=== PATIENT | female | born 1965 | race Caucasian/White ===

== ENCOUNTER 2024-06-14 15:00 | Outpatient (OUT) | payer OTHER, SELFPAY ==
--- NOTE | 2024-06-14 15:22 | XR_ITS ---
The [address] [address] Patient Name: HORTENCIA RAMIREZ MRN: [id number] date: 1965 Sex: F Assigned Patient Location: LAB Current Patient Location: Accession/Order Number: [id number] Exam Date: 06/14/2024 15:30 Report Date: 06/15/2024 07:56 At the request of: OG FARMER Procedure: XR acute abdomen series EXAMINATION: XR acute abdomen series HISTORY: Constipation, Vaginal Bleeding COMPARISON: No relevant comparison available. FINDINGS: LUNGS: No infiltrate, pneumothorax, or pleural effusion. MEDIASTINUM: No abnormal widening. BOWEL GAS PATTERN: Non-obstructed. FREE AIR: None. CALCIFICATIONS: None significant. BONES: Mild to moderate diffuse degenerative change OTHER: Negative. XR/XR acute abdomen series IMPRESSION: Clear lungs Nonobstructive bowel gas pattern with a normal amount of stool Electronically authenticated by: RICKY PETERSEN Date: 06/15/2024 07:56
[2024-06-14 15:25] LABS: Hematocrit 35.5 % (36.0-48.0); Hemoglobin 11.6 g/dL (12.0-16.0); Mean Corpuscular HGB Conc 32.7 g/dL (29.9-35.2); Mean Corpuscular Volume 91.7 fL (81.0-99.0); Mean Platelet Volume 9.4 fL (9.5-13.5); Platelet Count 374 10^3/uL (150-450); Red Blood Count 3.87 10^6/uL (4.20-5.40); Red Cell Distribution Width 13.4 % (11.0-15.0); White Blood Count 20.9 10^3/uL (4.0-11.0)
[2024-06-14 15:37] LABS: INR 1.05; Prothrombin Time 11.1 sec (9.0-11.6)
[2024-06-14 15:44] LABS: Eosinophils Absolute Manual 0.41 10^3/uL (0.00-0.70); Lymphocytes Absolute Manual 1.88 10^3/uL (1.20-3.80); Monocytes Absolute Manual 1.25 10^3/uL (0.30-0.80); Segmented Neut Absolute Manual 17.13 10^3/uL (1.4-6.5)
[2024-06-14 15:59] LABS: Free T4 1.26 ng/dL (0.76-1.46)
[2024-06-14 16:03] LABS: Alanine Aminotransferase 26 U/L (14-59); Albumin Globulin Ratio 0.6; Albumin Level 2.7 g/dL (3.4-5.0); Alkaline Phosphatase 150 U/L (46-116); Anion Gap 11.2; Aspartate Amino Transferase 21 U/L (15-37); BUN Creatinine Ratio 11.6; Bilirubin Total 0.4 mg/dL (0.2-1.0); Calcium 9.2 mg/dL (8.5-10.1); Carbon Dioxide 28.6 mmol/L (21.0-32.0); Chloride 99 mmol/L (98-107); Estimated GFR (African America >60 (>=60 mL/min/1.73m^2); Estimated GFR (Non-African Ame >60 (>=60 mL/min/1.73m^2); Globulin 4.8 g/dL; Glucose 117 mg/dL (74-106); Potassium 3.8 mmol/L (3.5-5.1); Sodium 135 mmol/L (136-145); Thyroid Stimulating Hormone 1.598 uIU/mL (0.358-3.740); Total Protein 7.5 g/dL (6.4-8.2)
== END 2024-06-14 15:01 | disposition home or self-care (01) ==
LOC: LAB 15:04
PROVIDERS: PCP Family Medicine; Visit Provider Family Medicine
DX: K59.00 Constipation, unspecified (principal); Z23 Encounter for immunization; N93.9 Abnormal uterine and vaginal bleeding, unspecified; I10 Essential (primary) hypertension; E03.9 Hypothyroidism, unspecified; R53.83 Other fatigue
CPT/HCPCS: 36415; 74022; 80053; 84439; 84443; 85007; 85027; 85610

== ENCOUNTER 2024-06-17 15:48 | Emergency (ER) | payer OTHER, SELFPAY ==
[2024-06-17] VITALS (16 sets, daily range): BP systolic 121–179; BP diastolic 71–113; PULSE 88–96; TEMP 36.7; O2SAT 96–98; BMI 50.4
--- OUTSIDE RECORDS SUMMARY | 2024-06-17 15:55 | XMS_ITS | CCD ---
Author Organization [facility] Inform ion Partnership [facility] Care Team Providers Care Distribution System Operator Name Role Phone Nill, Kevin R Unavailable Unavailable Nill, Kevin R Unavailable Unavailable Nill, Kevin R Unavailable Unavailable Og Cintron~[phone] UNKNOWN Unavailable Unavailable MISC, DR ARITA Admitting Unavailable MISC, DR ARITA Attending Unavailable HOY, DR FOLEY Primary Care Unavailable MISC, DR ARITA Consulting Unavailable ZIEBER, DR BHAVIN Mason Consulting Unavailable MISC, DR ARITA Admitting Unavailable MISC, DR ARITA Attending Unavailable DARIAN, DR FOLEY Primary Care Unavailable MISC, DR ARITA Consulting Unavailable DARIAN, DR FOLEY Admitting Unavailable HOY, DR FOLEY Attending Unavailable EBENY, DR FOLEY Primary Care Unavailable ZIEBER, DR BHAVIN Mason Consulting Unavailable LEIGHANN, TORI Admitting Unavailable LEIGHANN TORI Attending Unavailable DARIAN, DR FOLEY Primary Care Unavailable LEIGHANN, TORI Consulting Unavailable LEIGHANN, TORI Admitting Unavailable LEIGHANN TORI Attending Unavailable DARIAN, DR FOLEY Primary Care Unavailable LEIGHANN TORI Consulting Unavailable Allergies Allergy Classification Reported Allergen(s) Allergy Type Date of Onset Reaction(s) Facility (1 source) No Known Medication Allergies; Translations: [No Known Medication Allergies] Propensity to adverse reactions (disorder) [facility] Repository Problems Active Problems Problem Classification Problem Date Documented Date Episodic/Chronic Conditions associated with dizziness or vertigo (1 source) Dizziness and giddiness; Translations: [DIZZINESS AND GIDDINESS] Onset: 08-23-2022 Episodic Osteoarthritis (1 source) Unilateral primary osteoarthritis, left knee; Translations: [UNI PRIM OSTEOARTHRITIS LT KNEE] Onset: 04-08-2022 Chronic Other upper respiratory disease (5 sources) Other specified disorders of nose and nasal sinuses; Translations: [OTH SPEC D/O NOSE NASAL SINUSES] Onset: 09-21-2021 Episodic Skin and subcutaneous tissue infections (1 source) Cellulitis of left lower limb; Translations: [CELLULITIS OF LEFT LOWER LIMB] Onset: 06-02-2022 Episodic Superficial injury; contusion (5 sources) Contusion of left lower leg, initial encounter; Translations: [Abrasion, left lower leg, initial encounter] Onset: 04-30-2022 Episodic Unclassified (4 sources) CONTACT W/AND (SUSP) EXPOS COVID-19; Translations: [CONTACT W/AND (SUSP) EXPOS COVID-19] Onset: 09-21-2021 Past or Other Problems Problem Classification Problem Date Documented Da te Episodic/Chronic Other non-traumatic joint disorders (1 source) Pain in left shoulder; Translations: [PAIN IN LEFT SHOULDER] Onset: 04-30-2022 Episodic Other non-traumatic joint disorders (4 sources) Pain in left knee; Translations: [PAIN IN LEFT KNEE] Onset: 04-07-2022 Episodic Other upper respiratory infections (1 source) Acute pharyngitis, unspecified; Translations: [ACUTE PHARYNGITIS UNSPECIFIED] Onset: 09-21-2021 Episodic Unclassified (1 source) CONTACT W/AND (SUSP) EXPOS COVID-19; Translations: [CONTACT W/AND (SUSP) EXPOS COVID-19] Onset: 09-17-2021 Results Test Name Value Interpretation Reference Range Facility Covid-19 PCR (CVDTB)on SARS-CoV-2 (COVID-19) RNA NE+probe Ql (Unsp spec) Not detected Normal NOT DETECTED [facility] Comment on above: Result Comment: When diagnostic testing is negative, the possibility of a false negative should be considered in the context of a patient's recent exposures and the presence of clinical signs and symptoms consistent with SARS-CoV-2. This test is not yet approved or cleared by the [place] FDA. When there are no FDA-approved or cleared tests available, and other criteria are met, FDA can make tests available under an emergency access mechanism called an Emergency Use Authorization (EUA). The EUA for this test is supported by the [employer] Manager of Health and Human Service's declaration that circumstances exist to justify the emergency use of in vitro diagnostics for the detection and/or diagnosis of the virus that causes COVID-19. This EUA will remain in effect for the duration of the COVID-19 declaration justifying emergency of IVDs, unless it is terminated or revoked by the FDA (after which the test may no longer be used). Performed By: #### C VDTB #### [facility] [address] [place] [address] Dr. Barney Carvajal INFLUENZA A AND B AGon 08-19 [facility] SEE BELOW Normal [facility] Comment on above: Result Comment: Nega tive for Flu A protein angiten. Infection due to Flu A cannot be ruled out. Flu A angiten in the sample may be below the detection limit of the test. Performed By: #### I NFLUAB #### [facility] [address] [place] [address] Dr. Barney Carvajal [facility] SEE BELOW Normal [facility] Comment on above: Result Comment: Nega tive for Flu B protein antigen. Infection due to Flu B cannot be ruled out. Flu B antigen in the sample may be below the detection limit of the test. Performed By: #### I NFLUAB #### [facility] [address] [place] [address] Dr. Barney Carvajal INFLUENZA A AG Negative Normal NEGATIVE SEE COMMENT [facility] Comment on above: Performed By: #### I NFLUAB #### [facility] [address] [place] [address] Dr. Barney Carvaajl INFLUENZA B AG Negative Normal NEGATIVE SEE COMMENT [facility] Comment on above: Performed By: #### I NFLUAB #### [facility] [address] [place] [address] Dr. Barney Carvajal INTERNAL CONTROLS Within Normal Limits Normal Wi thin Normal Limits [facility] Comment on above: Performed By: #### I NFLUAB #### [facility] [address] [place] [address] Dr. Barney Carvajal US PABLO DOP LEG LTon 05-29-20 US PABLO DOP LEG LT EXAMINATION: US PABLO DOP LEG LT HISTORY: Cellulitis of left lower limb ; left calf pain and erythema since injury 4 weeks ago COMPARISON: No relevant comparison available. FINDINGS: REGION: Left lower extremity THROMBI: None. COMPRESSIBILITY: Normal compressibility. FLOW: Normal waveform and antegrade flow between 5 and 20 cm/s. OTHER: Long thin fluid collection at the fat-muscle interface of the medial lower leg corresponding to area of redness, 6.0 x 3.4 x 1.0 cm. No internal or significant surrounding blood flow on color Doppler. Subcutaneous edema within the proximal calf. IMPRESSION: 1. No deep vein thrombus within the left lower extremity. 2. Subcutaneous edema. 3. Nonspecific fluid collection at the fat-muscle interface suspected to represent an old hematoma or seroma. Electronically authenticated by: BHAVIN LIAO Date: 2022-05-29 14:58 Normal [facility] Covid-19 PCR (CVDTBH)on SARS-CoV-2 (COVID-19) RNA NE+probe Ql (Unsp spec) Not detected Normal NOT DETECTED [facility] Comment on above: Result Comment: This test is not yet approved or cleared by the [place] FDA. When there are no FDA-approved or cleared tests available, and other criteria are met, FDA can make tests available under an emergency access mechanism called an Emergency Use Authorization (EUA). The EUA for this test is supported by the [place] of Health and Human Service's (HHS's) declaration that circumstances exist to justify the emergency use of in vitro diagnostics for the detection and/or diagnosis of the virus that causes COVID-19. This EUA will remain in effect (meaning this test can be used) for the duration of the COVID-19 declaration justifying emergency of IVDs, unless it is terminated or revoked by FDA (after which the test may no longer be used). When diagnostic testing is negative, the possibility of a false negative should be considered in the context of a patient's recent exposures and the presence of clinical signs and symptoms consistent with SARS-CoV-2. Performed By: #### C [facility] #### [facility] [address] [address] [address] Barney Carvajal Coding Summary.on 08-25-2018 Coding Summary. CODING DATE: 018 FINAL [facility] STATUS: Home (Routine DC) PAYOR: Commercial Insurance APC DESCRIPTION 5311 Level 1 Lower GI Procedures 5301 Level 1 Upper GI Procedures ADMIT DX: REASON FOR VISIT DX: R13.10 Dysphagia, unspecified FINAL DX: PRINCIPAL: Z12.11 Encounter for screening for malignant neoplasm of colon SECONDARY: K31.7 Polyp of stomach and duodenum K29.50 Unspecified chronic gastritis without bleeding R13.10 Dysphagia, unspecified K21.9 Gastro-esophageal reflux disease without esophagitis F32.9 Major depressive disorder, single episode, unspecified Z87.891 Personal history of nicotine dependence PYMT PROC APC STAT DESCRIPTION DOCTOR NAME DATE 56507 6018 Colonoscopy, flexible; Kevin BELL MD 08/23/2018 diagnostic, including collection of specimen(s) by brushing or washing, when performed (separate procedure) [id number] T Kevin BELL MD 08/23/2018 phagogastroduodenoscopy, flexible, transoral; with biopsy, single or multiple [id number] Anesthesia for combined Eze Ann Jr, DO 08/23/2018 upper and lower gastrointestinal endoscopic procedures, endoscope introduced both proximal to and distal to the duodenum NOTE: The code number assigned matches the documented diagnosis and / or procedure in the patient's chart. However, the narrative phrase printed from the coding software may appear abbreviated, or result in slightly different terminology. Revised Coded By: Swathi Brink Revised Date Saved: 08/25/2018 11:19 am Normal [facility] Main OR Intraoperative Recor don 08-24-2018 Main OR Intraoperative Record IntraOp Document Type FT Summary Primary Physician: Kevin BELL MD Finalized Date/Time: 08/24/18 07:58:35 Pt. Name: HORTENCIA RAMIREZ/Sex: 1965 Female Med Rec #: [id number] Physician: Kevin BELL MD Financial #: [id number] Pt. Type: O Room/Bed: / Admit/Disch: 08/23/18 07:55:32 - 08/23/18 23:59:59 Institution: Case Times FT Entry 1 Patient Times In Room 08/23/18 09:07:00 Out Room 08/23/18 09:40:00 Procedure Times Start 08/23/18 09:12:00 Stop 08/23/18 09:36:00 Anesthesia Times Start 08/23/18 09:07:00 Stop 08/23/18 09:40:00 Time at [place] 08/23/18 09:32:00 Last Modified By: Richard DOMÍNGUEZ Xochitl 08/23/18 09:39:44 General Comments: colonoscopy started at 0924 08/24/18 Chart opened to review and send charges Osiris Ramos CST Case Attendance FT Entry 1 Entry 2 Entry 3 Case Attendee Seth Rayo DO, Eze BELL MD, Andre Lemus RN Role Performed Anesthesiologist of Surgeon - Primary Director Of Media - Primary Record Time In 08/23/18 09:07:00 08/23/18 09:07:00 08/23/18 09:07:00 Time Out 08/23/18 09:40:00 08/23/18 09:40:00 08/23/18 09:40:00 Procedure EGD AND COLONOSCOPY(.) EGD AND COLONOSCOPY(.) EGD AND COLONOSCOPY(.) Comments Last Modified By: Jens RN, Andre Colindres RN, Andre Lowe RN 08/23/18 09:39:46 08/23/18 09:39:46 08/23/18 09:39:46 Entry 4 Case Attendee Caitlyn DOMÍNGUEZ/Claudine CAMPO Role Performed Scrub - Primary Time In 08/23/18 09:07:00 Time Out 08/23/18 09:40:00 Procedure EGD AND COLONOSCOPY(.) Comments Last Modified By: Andre Colindres RN 08/23/18 09:39:46 Perioperative Protocols FT Pre-Care Text: Implements protective measures prior to operative or invasive procedure, confirms identity before the operative or invasive procedure, verifies operative procedure, surgical site, and laterality Entry 1 Procedure(s) EGD AND COLONOSCOPY(.) Patient Identity Birthday, ID Band Verified (select at Check, Patient least 2): Participation Consents / H and P Anesthesia Consent, Operative Site N/A Verified HandP, Surgery/Procedure Marking Verified Consent Surgical Site No Laterality Verified n/a Verified Procedure Verified Yes Correct Patient Yes Position Verified Availability Equipment, Medication Prep Dry n/a Verified (If Applicable) PreOp Antibiotic No Time Out Seth Rayo DO, Eze Valera, Given Participants RADHA MOISE, Jens Singh RN, Caitlyn Powell CST/Claudine CAMPO Time Out Complete 08/23/18 09:10:00 Outcomes Met? Yes Last Modified By: Andre Colindres RN 08/23/18 09:10:48 Post-Care Text: The patient is free from signs and symptoms of injury caused by extraneous objects Allergy Information FT Pre-Care Text: Verifies allergies Entry 1 Allergies Reviewed? Yes Allergies Reviewed Self/Patient With Outcomes Met? Yes Last Modified By: Andre Colindres RN 08/23/18 07:28:35 Post-Care Text: The patient received appropriate medication(s) safely administered during the perioperative period Surgical Procedures FT Entry 1 Procedure Description Procedure EGD AND COLONOSCOPY Modifiers . Surgeon Description egd with polypectomy and biopsy, and colonoscopy Primary Procedure Yes Primary Surgeon Kevin BELL MD 08/23/18 09:12:00 Stop 08/23/18 09:36:00 Anesthesia Type General Surgical Service General Wound Class 2 - Clean-Contaminated Last Modified By: Andre Colindres RN 08/23/18 09:39:52 General Comments: egd completed at 0921, patient made ready for colonoscopy General Case Data FT Pre-Care Text: Classifies surgical wound, implements aseptic technique, initiates traffic control Entry 1 Case Information OR ENDO 2 FT Case Level Level 2 Wound Class 2 - Clean-Contaminated Specialty General ASA Class 2 Preop Diagnosis SCREENING, DYSPHAGIA, Postop Same As Preop No GERD Postop Diagnosis Gastritis, gastric body Outcomes Met? Yes polyp,diverticulosis , Last Modified By: Andre Colindres RN 08/23/18 09:32:49 Post-Care Text: The patient is free from signs and symptoms of infection Skin Assessment (Pre Procedure) FT Pre-Care Text: Implements protective measures to prevent skin/ tissue injury due to thermal or mechanical sources Evaluates for signs and symptoms of physical injury to skin and tissue Entry 1 Skin Integrity Intact, Sigel, Warm, and Skin Abnormality No Dry Outcomes Met? Yes Last Modified By: Andre Colindres RN 08/23/18 09:10:02 Post-Care Text: The patient is free from signs and symptoms of injury caused by extraneous objects Patient Positioning FT Pre-Care Text: Identifies physical alterations that require additional precautions for procedure-specific positioning, verifies presence of prosthetics or corrective devices, positions the patient, evaluates the patient for signs and symptoms of injury as a result of positioning Entry 1 Procedure EGD AND COLONOSCOPY(.) Body Position Lateral, right side up Feet Uncrossed? Yes Left Arm Position Resting at Side Right Arm Position Resting at Side Left Leg Position Extended Right Leg Position Extended Positioning Device Safety Strap, Pillow Under Head Large Press Points Checked Yes By RADHA MOISE, Seth Singh Jr, DO, James A Outcomes Met? Yes Last Modified By: Andre Colindres RN 08/23/18 07:29:18 Post-Care Text: The patient is free from signs and symptoms of injury related to positioning Patient Care Devices FT Pre-Care Text: Implements protective measures to prevent skin/ tissue injury due to thermal or mechanical sources Entry 1 Entry 2 Equipment Type ENDOSCOPY VIDEO MONITOR CHARGE SURGERY SYSTEM[F] [F] Equipment Number [id number] Equipment Setting Outcomes Met? Yes Yes Last Modified By: Andre Colindres RN, RN, Miguel 08/23/18 07:29:33 08/23/18 07:29:33 Post-Care Text: The patient is free from signs and symptoms of injury caused by extraneous objects Transport To OR Pre-Care Text: Transports according to individual needs. Evaluates for signs and symptoms of skin and tissue injury as a result of transfer or transport Entry 1 Via Cart By Andre Colindres RN Safety Precautions Side Rails Up Outcomes Met? Yes Last Modified By: Andre Colindres RN 08/23/18 07:29:41 Post-Care Text: The patient is free from signs and symptoms of injury related to transfer/transport Departure From OR Pre-Care Text: Transports according to individual needs. Evaluates for signs and symptoms of skin and tissue injury as a result of transfer or transport. Entry 1 Via Cart Safety Precautions Safety Strap, Side Rails Up PostOp Destination PACU Transported By Andre Colindres RN Patient Status Stable Skin. Condition Intact, Sigel, Warm, and Dry Airway Maintenance Oxygen in Use? No Outcomes Met? Yes Last Modified By: Andre Colindres RN 08/23/18 09:10:34 Post-Care Text: The patient is free from signs and symptoms of injury related to transfer/transport General Comments: report given to pacu nurse Medication Administration FT Pre-Care Text: Verifies allergies, administers prescribed medications and solutions, administers prescribed antibiotic therapy and immunizing agents as ordered, evaluates response to medications Administers prescribed medications and solutions Entry 1 Expiration Date Yes Outcomes Met? Yes Verified Last Modified By: Andre Colindres RN 08/23/18 07:29:48 Post-Care Text: The patient received appropriate medication(s) safely administered during the perioperative period For [place] please see scanned medication reconcilliation form for medications used at the field during the procedure. Cultures and Specimens FT Pre-Care Text: Manages specimen handling and disposition Manages culture specimen collection Entry 1 Cultures Ordered No Specimens Ordered Yes Specimen Disposition Designated OR Area Frozen Section Times Outcomes Met? Yes Last Modified By: Andre Colindres RN 08/23/18 09:21:46 Post-Care Text: The patient is free from signs and symptoms of injury caused by extraneous objects The patient is free from signs and symptoms of infection Case Comments Finalized By: Xochitl Ramos CST Document Signatures Signed By: Andre Colindres RN 08/23/18 09:39 Xochitl Ramos CST 08/24/18 07:58 Normal [facility] Progress Note-Physicianon Protein mass conc Patient: CHRISTY RAMIREZ Age: 53 years Sex: Female : 1965 Associated Diagnoses: None Author: Eze Ann Jr, DO Preoperative Information Anesthesia Preop Information NPO 8 HOURS EXCEPT GI PREP AT LEAST 4 HOURS PRIOR TO PROCEDURE Anesthesia history: Patient history: No prior anesthesia problems. Re-evaluation prior to induction: Initial evaluation reviewed: No significant change. Anesthesia results Review of Systems Cardiovascular: Negative. Respiratory: Negative. Health Status Allergies: No active allergies have been recorded. Current medications: (Selected) Documented MedicationsDocumentedPrilosec : 20 mg, Oral, Daily, Refills(s) 0, Control of stomach acidZoloft: 100 mg, Oral, Daily, Refills(s) 0, Depression, Home Medications (2) ActivePrilosec 20 mg, Oral, DailyZoloft 100 mg, Oral, Daily Problem list: No problem items selected or recorded. Histories Past Medical History: No active or resolved past medical history items have been selected or recorded. Social History Social & Psychosocial HabitsNo Data Available. Physical Examination Airway: Mallampati classification: II (soft palate, fauces, uvula visible). Respiratory: Lungs are clear to auscultation. Cardiovascular: Regular rhythm. Neurologic: Alert, Oriented. Plan [place] [employer] Anesthesiologists (ASA) physical status classification: Class II. Anesthetic Preoperative Plan Anesthesia: General. . Anesthetic plan, risks, benefits, and alternatives discussed with the patient and/or family. Communication: face to face with (patient 5 minutes, Patient educated on smoking cesstation). [facility] Comment on above: Result Comment: Elec tronically Signed By: Eze Ann Jr, DO\.br\Date and Time Signed: 08/24/18 13:04 EST Protein mass conc Patient: CHRISTY RAMIREZ Age: 53 years Sex: Female : 1965 Associated Diagnoses: None Author: Eze Ann Jr, DO Postoperative Information Post Operative Note: Post Anesthesia Care Unit. Anesthetic utilized: Monitored anesthesia care. Health Status Allergies: Allergic Reactions (Selected)No Known Medication Allergies Problem list: No problem items selected or recorded. Physical Examination Vital Signs 08/23/2018 09:45 EST Heart Rate Monitored 70 bpm Respiratory Rate Monitored 11.0 br/min Systolic Blood Pressure 127 mmHg Diastolic Blood Pressure 84 mmHg SpO2 96 % 08/23/2018 09:42 EST Temperature Temporal Artery 36.5 DegC Heart Rate Monitored 70 bpm Respiratory Rate Monitored 14.0 br/min Systolic Blood Pressure 133 mmHg Diastolic Blood Pressure 76 mmHg SpO2 95 % 08/23/2018 09:35 EST Heart Rate Monitored 75 bpm bpm Systolic Blood Pressure 136 mmHg mmHg Diastolic Blood Pressure 79 mmHg mmHg SpO2 99 % % 08/23/2018 09:30 EST Heart Rate Monitored 68 bpm bpm Systolic Blood Pressure 122 mmHg mmHg Diastolic Blood Pressure 102 mmHg mmHg SpO2 100 % % 08/23/2018 09:25 EST Heart Rate Monitored 63 bpm bpm Systolic Blood Pressure 112 mmHg mmHg Diastolic Blood Pressure 50 mmHg mmHg SpO2 99 % % 08/23/2018 09:20 EST Heart Rate Monitored 68 bpm bpm Systolic Blood Pressure 118 mmHg mmHg Diastolic Blood Pressure 64 mmHg mmHg SpO2 99 % % 08/23/2018 09:15 EST Heart Rate Monitored 68 bpm bpm Systolic Blood Pressure 134 mmHg mmHg Diastolic Blood Pressure 88 mmHg mmHg SpO2 99 % % 08/23/2018 09:10 EST Heart Rate Monitored 69 bpm bpm Systolic Blood Pressure 125 mmHg mmHg Diastolic Blood Pressure 88 mmHg mmHg SpO2 100 % % 08/23/2018 09:08 EST Systolic Blood Pressure 146 mmHg mmHg Diastolic Blood Pressure 90 mmHg mmHg 08/23/2018 08:15 EST Temperature Temporal Artery 36.3 DegC Heart Rate Monitored 66 bpm Respiratory Rate Monitored 12.0 br/min Systolic Blood Pressure 150 mmHg HI Diastolic Blood Pressure 89 mmHg Blood Pressure Location Left arm SpO2 94 % Vital Signs (last 24 hrs) Last Charted SBP 127 mmHg (AUG 23:45)DBP 84 mmHg (AUG 23:45)SpO2 96 % (AUG 23:45)Height 165.10 cm (AUG 23:)Weight 128.82 kg (AUG 23:)BMI 47.26 kg/m2 (AUG 23:) Documented vital signs General: Alert and oriented, No acute distress. Respiratory: Lungs are clear to auscultation. Cardiovascular: Normal rate, Regular rhythm. Neurologic: Normal sensory. Review / Management Condition: Stable. Assessment Anesthetic outcome No anesthetic complications noted. Adequate pain relief. TOLERATING PO INTAKE. voiding w/o diff.. No Complaint of nausea and vomiting. Plan Transfer/ Discharge: Condition stable. [facility] Comment on above: Result Comment: Elec tronically Signed By: Eze Ann Jr, DO\.br\Date and Time Signed: 08/24/18 13:04 EST History and Physicalon 08-23 History and Physical Patient: HORTENCIA RAMIREZ Age: 53 years Sex: Female : 1965 Associated Diagnoses: None Author: Kevin BELL MD Subjective no changes to H & P [facility] Comment on above: Result Comment: Elec tronically Signed By: Kevin BELL MD\.br\Date and Time Signed: 08/23/18 09:01 EST Inpatient Patient Summaryon 08-23-2018 Inpatient [facility] InstructionsPERSON INFORMATION Name: HORTENCIA RAMIREZ PHYSICIANS Admitting Physician: Kevin BELL MD Physician: Kevin BELL MD PCP: Uzair Cintron MD Diagnosis: Antral gastritis; Gastric polyp Comment: PATIENT EDUCATION INFORMATIONInstructions:Medic ation Leaflets:Follow up:With: Address: When: [place] [address] Business (1) Within 7 to 10 days MEDICATION LISTComment: [facility] Main OR PACU I Recordon 08-14 Main OR PACU I Record PACU Phase I Document Type FT Summary Primary Physician: Kevin BELL MD Finalized Date/Time: 08/23/18 09:46:28 Pt. Name: CHRISTY RAMIREZKIRSTEN Diop/Sex: 1965 Female Med Rec #: [id number] Physician: Kevin BELL MD Financial #: [id number] Pt. Type: O Room/Bed: / Admit/Disch: 08/23/18 07:55:32 - Institution: Case Times PACU I FT Pre-Care Text: Identifies barriers to communication and implements measures to provide psychological support Develops individualized plan of care, and ensures continuity of care Maintains patient's dignity and privacy, and maintains patient confidentiality Identifies and reports philosophical, cultural, and spiritual beliefs and values Identifies individual values and wishes concerning care Implements aseptic technique, and administers prescribed antibiotic therapy and immunizing agents as ordered Evaluates postoperative tissue perfusion Implements thermoregulation measures, and monitors body temperature Evaluates postoperative respiratory status Evaluates postoperative cardiac status Evaluates postoperative neurological status Assesses pain control, collaborated in initiating patient-controlled analgesia and implements alternative methods of pain control Verifies allergies, administers prescribed medications and solutions, evaluates response to medications Entry 1 In PACU I 08/23/18 09:42:00 Discharge from PACU 08/23/18 10:12:00 I Outcomes Met? Yes Last Modified By: Ofe Rodriguez RN 08/23/18 09:46:14 Post-Care Text: The patient demonstrates knowledge of the expected response to the operative or invasive procedure The patient's care is consistent with the individualized perioperative plan of care The patient's right to privacy is maintained The patient's value system, lifestyle, ethnicity, and culture are considered, respected, and incorporated into the perioperative plan of care The patient participates in decisions affecting his or her perioperative plan of care The patient is free from signs and symptoms of infection The patient has wound/tissue perfusion consistent with or improved from baseline levels established preoperatively The patient is at or returning to normothermia at the conclusion of the immediate postoperative period The patient's respiratory function is consistent with or improved from baseline levels established preoperatively The patient's cardiovascular status is consistent with or improved from baseline levels established preoperatively The patient's cardiovascular status is consistent with or improved from baseline levels established preoperatively The patient demonstrates and/or reports adequate pain control throughout the perioperative period The patient received appropriate medication(s), safely administered during the perioperative period Acuity Level PACU I FT Entry 1 Start Time 08/23/18 09:42:00 Stop Time 08/23/18 10:12:00 Acuity Level Acuity Level I Last Modified By: Ofe Rodriguez RN 08/23/18 09:46:26 Finalized By: Ofe Rodriguez RN Document Signatures Signed By: Ofe Rodriguez RN 08/23/18 09:46 Normal [facility] Main OR Preoperative Recordo n 08-23-2018 Main OR Preoperative Record Holding Area Document Type FT Summary Primary Physician: Kevin BELL MD Finalized Date/Time: 08/23/18 08:15:27 Pt. Name: HORTENCIA RAMIREZ/Sex: 1965 Female Med Rec #: [id number] Physician: Kevin BELL MD Financial #: [id number] Pt. Type: O Room/Bed: / Admit/Disch: 08/23/18 07:55:32 - Institution: Case Times Holding FT Pre-Care Text: Verifies consent for planned procedure, identifies individual values and wishes concerning care, includes family members in perioperative teaching Secures patient's records' belongings, and valuables, maintains patient's dignity and privacy, and maintains patient confidentiality Entry 1 In Holding 08/23/18 08:04:00 Outcomes Met? Yes Last Modified By: Amanda Avalos RN 08/23/18 08:07:36 Post-Care Text: The patient participates in decisions affecting his or her perioperative plan of care The patient's right to privacy is maintained Surgery Checklist FT Entry 1 Patient Birthday, ID Band Procedure History and Physical, Identification: Check, Patient Verification: Surgical Consent, With Participation Patient NPO after Midnight: Yes Personal Items: Jewelry Personal Items ring Limitations: none Comment: Complaints of Pain: Yes Pain Comment: lower back 6/10, headache Operative Site n/a Availability Equipment Marking: Verified: Does Patient Smoke No Patient states Yes Comment - Adult Spouse Reyes postop adult Supervision supervision available Case Cancelled in No Holding Area see comments below for reason Last Modified By: Amanda Avalos RN 08/23/18 08:15:25 Finalized By: Amanda Avalos RN Document Signatures Signed By: Amanda Avalos RN 08/23/18 08:08 Amanda Avalos RN 08/23/18 08:15 Normal [facility] Operative Reporton 12-10-201 8 Operative Report Date of Surgery: 08/23/2018SURGEON: Kevin Bell M.D.PREOPERATIVE DIAGNOSIS: Dysphagia, gastroesophageal reflux disease, andneed for colorectal screeningPOSTOPERATIVE DIAGNOSIS: Antral gastritis as well as polyp in the gastricbody, normal colonOPERATION: Esophagogastroduodenoscopy with antral biopsy and biopsy ofgastric polyp, colonoscopy to cecumANESTHESIA: Monitored anesthesia careESTIMATED BLOOD LOSS: Less than 1 mL.INDICATIONS AND CONSENT: The patient is a 53 year old female who presentsfor dysphagia and gastroesophageal reflux disease as well as need forcolorectal screening. Indications, risks, benefits and alternatives ofproceeding with esophagogastroduodenoscopy and colonoscopy were explainedextensively to the patient including the risk of bleeding, aspiration,esophageal, gastric, colonic perforation or anesthetic complication. Allof her questions were answered, and informed consent was obtained.PROCEDURE: The patient was brought to the Operating Room and placed in theleft lateral decubitus position. Monitored anesthesia care was provided.Bite block was placed in the patient's mouth. The scope was insertedthrough the oropharynx and, under direct visualization, was advanced intothe esophagus past the cricopharyngeus, and down to the stomach. Thestomach was insufflated with air. The pylorus was traversed down thedescending portion of the duodenum. There was no evidence of duodenitisor ulcerations, no scarring within the pyloric channel. The scope waspulled back in the stomach. There was noted to be a moderate amount ofantral gastritis without ulcerations or bleeding. Biopsy was obtainedtimes two with cold biopsy forceps. Within the body of the stomach therewas noted to be a small 4 mm. sessile polyp that was biopsied with the coldbiopsy forceps with good hemostasis. The scope was retroflexed. There wasno significant hiatal hernia. The gastroesophageal junction was noted atapproximately 42 cm. There was no distal esophagitis or Thapa's changes.The remainder of the esophagus was unremarkable. The scope was thenwithdrawn. The patient was then positioned for a colonoscopy. Rectalexamination was performed which revealed no masses or blood. The scope wasinserted into the anal canal under direct visualization and was advanced,with the aid of abdominal compression, it was advanced to the cecum wherececal markings were clearly identified. There was noted to be a good prep.Upon withdrawal of the scope the mucosal surfaces were carefully examined.There were no mass lesions or polyps, no inflammatory changes orulcerations. There was moderate sigmoid diverticulosis withoutinflammatory changes or scarring. The scope was retroflexed in the analcanal. There was noted to be some prominent rectal veins but nosignificant hemorrhoidal disease. The scope was then withdrawn. Thepatient tolerated the procedure well and was sent to the Recovery Room ingood condition.Kevin Bell M.D.aekDictated: 08/23/2018 #[id number]: 08/23/2018 #[id number]: Og Cintron M.D.Kevin Bell M.D. [facility] Comment on above: Result Comment: Elec tronically Signed By: Kevin BELL MD.br\Date and Time Signed: 08/23/18 10:57 EST Patient Education - Texton 1 10-24-2017 Patient Education - Text [facility] Encounters Encounter Date Encounter Type Care Provider Facility Start: 08-19-2022 End: 08-19-2022 ambulatory TORI LAWTON Facility:[facility] Start: 05-29-2022 End: 05-30-[address] DOCTOR COYLE Facility:[facility] Start: 04-29-2022 End: 04-30-[address] DOCTOR COYLE Facility:[facility] Start: 04-07-2022 End: 04-08-[address] OG CINTRON Facility:[facility] Start: 09-17-2021 End: 09-17-2021 ambulatory TORI LAWTON Facility:[facility] Start: 08-23-2018 End: 08-24-2018 Patient encounter procedure Kevin Bell Facility:[facility] C Payers Date Payer Category Payer Unknown [id number] .[id number] 1965 Unknown [id number] .16.84 [id number] 1965 Unknown [id number] [id number] [id number] 1965 Unknown [id number] 2.16.84 [id number] 1965 Unknown [id number] 2.16.84 [id number] 1965 Unknown [id number] [id number] 1960 Unknown [id number] 1960 Unknown 1960 Unknown [id number] Clinical Note 04-29-2022 Note Date & Type Note Facility 04-29-2022 Note PROCEDURE: XR SHOULD ER LT 2V or > HISTORY: Pain of left shoulder joint after falling COMPARISON: None. FINDINGS: BONES:No fracture, acute abnormality, or significant arthropathy. SOFT TISSUES:No visible soft tissue swelling. EFFUSION:None visible. OTHER: Negative. IMPRESSION: 1. No acute bone abnormality. Electronically authenticated by: BHAVIN LIAO Date: 2022-04-29 06:20 [facility] Clinical Note 04-29-2022 Note Date & Type Note Facility 04-29-2022 Note PROCEDURE: XR TIB_FI B LT 2V HISTORY: Abrasion of lower limb COMPARISON: None. FINDINGS: BONES:No acute fracture dislocation. Mild degenerative changes of the knee joint and ankle joint. Prominent degenerative enthesopathic spurring of the calcaneus. SOFT TISSUES:No visible soft tissue swelling. EFFUSION:None visible. OTHER: Negative. IMPRESSION: 1. No acute bone abnormality. Electronically authenticated by: BHAVIN LIAO Date: 2022-04-29 06:18 [facility] Clinical Note 04-08-2022 Note Date & Type Note Facility 04-08-2022 Note PROCEDURE: XR KNEE L T 4V or > HISTORY: Pain of left knee joint ; medial knee pain for 4 weeks; no known injury COMPARISON: None. FINDINGS: BONES:Small degenerative osteophytes along the articular margins of the anterior and medial compartments. Suspect slight joint space narrowing of the anterior and medial compartments. SOFT TISSUES:No visible soft tissue swelling. EFFUSION:None visible. OTHER: Negative. IMPRESSION: 1. Mild degenerative joint disease. Electronically authenticated by: BHAVIN LIAO Date: 2022-04-08 07:32 [facility] Summary Purpose Family History No Family History Records FoundNo Family History Records Found Advance Directives No Advanced Directives Records FoundNo Advanced Directives Records Found Additional Source Comments INFORMATION SOURCE (unrecogn ized section and content) DATE CREATED AUTHOR 09/23/2018 [facility] DATE CREATED AUTHOR AUTHOR'S ORGANIZ ATION 08/23/2022 [facility] FOR RECORDS PERTAINING TO PATIENTS WHO ARE OR HAVE BEEN ENROLLED IN A CHEMICAL DEPENDENCY/SUBSTANCEABUSE PROGRAM, SOME INFORMATION MAY BE OMITTED. This clinical summary was aggregated from multiple sources. Caution should be exercised in using it in the provision of clinical care. This summary normalizes information from multiple sources, and as a consequence, information in this document may materially change the coding, format and clinical context of patient data. In addition, data may be omitted in some cases. CLINICAL DECISIONS SHOULD BE BASED ON THE PRIMARY CLINICAL RECORDS. [employer] provides no warranty or guarantee of the accuracy or completeness of information in this document.
--- NOTE | 2024-06-17 16:09 | ED.ABDPAIN1 ---
HPI - Abdominal Pain General Chief Complaint: Abdominal Pain Stated Complaint: ABDOMINAL PAIN Time Seen by Provider: 06/17/24 15:55 Source: patient Mode of arrival: walk-in History of Present Illness HPI narrative: 59 year old female presents to the ED for abd discomfort, diarrhea, emesis. Onset was 06/14/24. Reports three episodes of emesis. She was having issues with constipation one week ago and was started on miralax. Reports having blood work completed on 06/14/24. States her WBC count was elevated so she was started on two antibiotics; she does not recall the names of the antibiotics. Denies fever, chills, urinary sx, cough, SOB, CP. Denies nausea. Related Data Allergies Allergy/AdvReac Type Severity Reaction Status Date / Time No Known Drug Allergies Allergy Verified 06/17/24 16:00 Review of Systems ROS Constitutional Denies: fever or chills Ears, nose, mouth, and throat Denies: throat pain Cardiovascular Denies: chest pain Respiratory Denies: shortness of breath Gastrointestinal Reports: abdominal pain, vomiting and diarrhea; Denies: nausea Genitourinary Denies: painful urination, urinary frequency or urinary urgency Musculoskeletal Denies: back pain or neck pain Integumentary/Breast Denies: rash Neurological Denies: headache PFSH PFSH Social History Little interest or pleasure in doing things: not at all Feeling down, depressed, or hopeless: not at all Exam Constitutional Vital Signs, click to edit/add: Last Vital Signs Temp 98.1 F 06/17/24 15:54 Pulse 96 H 06/17/24 15:54 Resp 18 06/17/24 15:54 BP 142/74 H 06/17/24 18:00 Pulse Ox 98 06/17/24 16:01 Common normals: no apparent distress and oriented x3 General appearance: cooperative Eye Common normals: conjunctivae normal and no scleral icterus Neck & C-Spine Common normals: supple Respiratory Common normals: normal respiratory effort Effort & inspection: able to speak in complete sentences and symmetric chest movement Cardio Common normals: regular rate and regular rhythm GI Common normals: Normal to inspection, nondistended, normoactive bowel sounds present, soft to palpation and non-tender Neuro Common normals: oriented x3 and moves all extremities Sensorium/orientation: awake and alert Course Vital Signs Vital signs: Vital Signs Temperature 98.1 F 06/17/24 15:54 Pulse Rate 96 H 06/17/24 15:54 Respiratory Rate 18 06/17/24 15:54 Blood Pressure 159/113 H 06/17/24 15:54 Pulse Oximetry 98 06/17/24 15:54 Temperature 98.1 F 06/17/24 15:54 Pulse Rate 96 H 06/17/24 15:54 Respiratory Rate 18 06/17/24 15:54 Blood Pressure 142/74 H 06/17/24 18:00 Pulse Oximetry 98 06/17/24 16:01 MDM - Abdominal Pain MDM Narrative Medical decision making narrative: WBC count was 30.7. Blood cultures and lactic acid were ordered. CT scan showed: Findings likely represent acute sigmoid diverticulitis with perforation and multiple abscesses in the abdomen or pelvis; the abscesses closely approximate/about the right ovary. Findings were discussed with the patient. She was started on IV Zosyn. Dr. Limon spoke with Dr. Rebolledo for surgery here at [facility]; he recommended transfer. The patient was in agreement with transfer to [facility] in [place], [place]. I spoke with Dr. Caballero for surgery who accepted the patient for transfer to [facility]. I then spoke with Dr. Pranay Knight the ED attending at [facility]. Differential Diagnosis Differential diagnosis: Likely abdominal pain, constipation, diverticulitis, gastroenteritis and small bowel obstruction Medical Records Attestation: I reviewed the patient's medical records. Lab Data Attestation: I reviewed the patient's lab results. Labs: Lab Results 06/17/24 Range/Units 16:10 WBC 30.7 H* (4.0-11.0) 10^3/uL RBC 3.84 L (4.20-5.40) 10^6/uL Hgb 11.4 L (12.0-16.0) g/dL Hct 35.1 L (36.0-48.0) % MCV 91.4 (81.0-99.0) fL MCH 29.7 (26.7-34.0) pg MCHC 32.5 (29.9-35.2) g/dL RDW 13.9 (11.0-15.0) % Plt Count 423 (150-450) 10^3/uL MPV 9.6 (9.5-13.5) fL Seg Neuts % (Manual) 84.0 H (43.0-75.0) Band Neutrophils % 2.0 (0-5) % Lymphocytes % (Manual) 7.0 L (20.5-60.0) % Monocytes % (Manual) 5.0 (1.7-12.0) % Eosinophils % (Manual) 1.0 (0.9-7.0) % Basophils % (Manual) 1.0 (0.2-2.0) % Neutrophils # (Manual) 25.78 H (1.4-6.5) 10^3/uL Band Neutrophils # 0.6 H (0.0-0.3) 10^3/uL Lymphocytes # (Manual) 2.14 (1.20-3.80) 10^3/uL Monocytes # (Manual) 1.53 H (0.30-0.80) 10^3/uL Eosinophils # (Manual) 0.30 (0.00-0.70) 10^3/uL Basophils # (Manual) 0.30 H (0.00-0.10) 10^3/uL Sodium 137 (136-145) mmol/L Potassium 3.8 (3.5-5.1) mmol/L Chloride 98 (98-107) mmol/L Carbon Dioxide 25.6 (21.0-32.0) mmol/L Anion Gap 17.2 BUN 14.0 (7.0-18.0) mg/dL Creatinine 0.94 (0.55-1.02) mg/dL Est GFR ( Amer) >60 (>=60 mL/min/1.73m^2) Est GFR (Non-Af Amer) >60 (>=60 mL/min/1.73m^2) BUN/Creatinine Ratio 14.9 Glucose 119 H (74-106) mg/dL Lactate 1.1 (0.4-2.0) mmol/L Calcium 9.2 (8.5-10.1) mg/dL Total Bilirubin 0.4 (0.2-1.0) mg/dL AST 26 (15-37) U/L ALT 34 (14-59) U/L Alkaline Phosphatase 168 H (46-116) U/L Total Protein 7.3 (6.4-8.2) g/dL Albumin 2.5 L (3.4-5.0) g/dL Globulin 4.8 g/dL Albumin/Globulin Ratio 0.5 Lipase 41.0 (16.0-77.0) U/L Imaging Data CT scan - abdomen: Attestation: I have reviewed the pertinent imaging results. Radiologist's impression: ITS Impressions Abdomen/Pelvis CT 06/17/24 16:43 IMPRESSION: 1. Findings likely represent acute sigmoid diverticulitis with perforation and multiple abscesses in the abdomen or pelvis. The abscesses closely approximate/about the right ovary. 2. Cholelithiasis. 3. Enlarged retroperitoneal lymph nodes may be reactive. 4. Multilevel lumbar spinal canal stenoses, some of these are at least moderate stenosis. Electronically authenticated by: RONNELL MICHELLE Date: 06/17/2024 16:59 Discharge Plan Discharge Chief Complaint: Abdominal Pain Clinical Impression: Perforated diverticulum, Intra-abdominal abscess Patient Disposition: [facility] Time of Disposition Decision: 18:37 Discharge Location: [facility] [address] Condition: Good Mode of Transportation: EMS
[2024-06-17 16:27] LABS: Hematocrit 35.1 % (36.0-48.0); Hemoglobin 11.4 g/dL (12.0-16.0); Mean Corpuscular HGB Conc 32.5 g/dL (29.9-35.2); Mean Corpuscular Hemoglobin 29.7 pg (26.7-34.0); Mean Corpuscular Volume 91.4 fL (81.0-99.0); Mean Platelet Volume 9.6 fL (9.5-13.5); Platelet Count 423 10^3/uL (150-450); Red Blood Count 3.84 10^6/uL (4.20-5.40); Red Cell Distribution Width 13.9 % (11.0-15.0)
[2024-06-17 16:40] LABS: Alanine Aminotransferase 34 U/L (14-59); Albumin Globulin Ratio 0.5; Albumin Level 2.5 g/dL (3.4-5.0); Alkaline Phosphatase 168 U/L (46-116); Anion Gap 17.2; Aspartate Amino Transferase 26 U/L (15-37); BUN Creatinine Ratio 14.9; Bilirubin Total 0.4 mg/dL (0.2-1.0); Calcium 9.2 mg/dL (8.5-10.1); Carbon Dioxide 25.6 mmol/L (21.0-32.0); Chloride 98 mmol/L (98-107); Estimated GFR (African America >60 (>=60 mL/min/1.73m^2); Estimated GFR (Non-African Ame >60 (>=60 mL/min/1.73m^2); Globulin 4.8 g/dL; Glucose 119 mg/dL (74-106); Potassium 3.8 mmol/L (3.5-5.1); Sodium 137 mmol/L (136-145); Total Protein 7.3 g/dL (6.4-8.2)
--- NOTE | 2024-06-17 16:43 | CT_ITS ---
The [address] [address] Patient Name: HORTENCIA RAMIREZ MRN: [id number] date: 1965 Sex: F Assigned Patient Location: ER Current Patient Location: ER Accession/Order Number: [id number] Exam Date: 06/17/2024 16:30 Report Date: 06/17/2024 16:59 At the request of: PEYTON EDMOND Procedure: CT abdomen pelvis w con EXAM: CT scan of the abdomen and pelvis using 100 mL of IV iodinated contrast. Dose reduction technique used: Automated exposure control and/or adjustment of the mA and/or kV according to patient size and/or use of iterative reconstruction technique. REASON FOR EXAM: pain, N/V/D COMPARISON: None FINDINGS: Wall thickening and fat stranding along the sigmoid colon. Multiple small fluid collections in the abdomen and pelvis. One of these in the mesentery measures 3.1 x 2.9 cm in maximal axial dimensions. The fluid collection in the right side of the pelvis measures approximately 3.6 x 3.0 cm. Wall thickening of the distal ileum is favored to be reactive to the adjacent inflammation. Multiple of the fluid collections are in close proximity/abutting the right ovary. Colonic diverticulosis. Multilevel lumbar spinal canal stenoses some which are either moderate or severe. Mildly enlarged retroperitoneal lymph nodes could be reactive. Cholelithiasis. Normal appendix. No free fluid in the abdomen or pelvis. No free intraperitoneal air. No dilated loops of small bowel or colon. No hydronephrosis or obstructing renal or ureteral calculi. Liver, pancreas, spleen, bilateral kidneys, and bilateral adrenal glands are otherwise unremarkable. Remainder unremarkable. CT/CT abdomen pelvis w con IMPRESSION: 1. Findings likely represent acute sigmoid diverticulitis with perforation and multiple abscesses in the abdomen or pelvis. The abscesses closely approximate/about the right ovary. 2. Cholelithiasis. 3. Enlarged retroperitoneal lymph nodes may be reactive. 4. Multilevel lumbar spinal canal stenoses, some of these are at least moderate stenosis. Electronically authenticated by: ORNNELL MICHELLE Date: 06/17/2024 16:59
[2024-06-17] MEDS: 0.9 % SODIUM CHLORIDE 1,000 ML 100 ML IV (16:45)
[2024-06-17 16:50] LABS: White Blood Count 30.7 10^3/uL (4.0-11.0)
[2024-06-17 16:51] LABS: Band Neutrophils Absolute 0.6 10^3/uL (0.0-0.3); Lymphocytes Absolute Manual 2.14 10^3/uL (1.20-3.80); Monocytes Absolute Manual 1.53 10^3/uL (0.30-0.80); Segmented Neut Absolute Manual 25.78 10^3/uL (1.4-6.5)
[2024-06-17] MEDS: PIPERACILLIN SODIUM/TAZOBACTAM 4.5 GM in 0.9 % SODIUM CHLORIDE 50 ML IV (17:49)
[2024-06-17 17:52] LABS: Lactate/Lactic Acid 1.1 mmol/L (0.4-2.0)
--- NOTE | 2024-06-17 19:55 | PC.NURSE ---
pt is up ambulating to the rest room denies pain at this time
--- NOTE | 2024-06-18 00:16 | PC.NURSE ---
report called to [facility] pt leaving with [facility]
== END 2024-06-18 00:17 | disposition short-term general hospital (02) ==
PROVIDERS: Nurse Practitioner Family; Emergency Provider Emergency Medicine; PCP Family Medicine
DX: K65.1 Peritoneal abscess (principal); K57.20 Diverticulitis of large intestine with perforation and abscess without bleeding
CPT/HCPCS: 36415; 74177; 80053; 83605; 83690; 85007; 85027; 87040; 96365; 99285; J2543; Q9967

== ENCOUNTER 2024-07-07 14:02 | Outpatient (OUT) | payer OTHER, SELFPAY ==
--- NOTE | 2024-07-07 14:08 | US_ITS ---
[address] [address] Patient Name: HORTENCIA RAMIREZ MRN: [id number] date: 1965 Sex: F Assigned Patient Location: Current Patient Location: Accession/Order Number: [id number] Exam Date: 07/07/2024 14:11 Report Date: 07/09/2024 09:08 At the request of: OG FARMER Procedure: US pelvis w/ transvaginal EXAMINATION: US pelvis w/ transvaginal HISTORY: Vaginal bleeding COMPARISON: No relevant comparison available. TECHNIQUE: Transabdominal and/or transvaginal sonographic examination was performed as indicated by examination type. FINDINGS: UTERUS: Normal size and appearance. Uterus size: 9.2 x 5.1 x 4.7 cm ENDOMETRIUM: Homogeneous appearance, but abnormally thickened. Endometrial thickness: 28 mm RIGHT OVARY: Normal size and appearance. Blood flow present within ovary on color Doppler. . Ovary size: 3.1 x 3.4 x 2.8 cm LEFT OVARY: Not seen. CUL-DE-SAC: Unremarkable. No significant free fluid. BLADDER: Unremarkable. OTHER: None. US/US pelvis w/ transvaginal IMPRESSION: 1. Markedly thickened endometrium without appreciable mass. Suspect endometrial hyperplasia. Electronically authenticated by: BHAVIN LIAO Date: 07/09/2024 09:08
== END 2024-07-07 14:03 | disposition home or self-care (01) ==
LOC: US 14:03
PROVIDERS: PCP Family Medicine; Visit Provider Family Medicine
DX: K59.00 Constipation, unspecified (principal); N93.9 Abnormal uterine and vaginal bleeding, unspecified; Z23 Encounter for immunization; R10.9 Unspecified abdominal pain
CPT/HCPCS: 76830; 76856